=== PATIENT | female | born 1970 | race Caucasian/White ===

== ENCOUNTER 2018-11-12 19:39 | Emergency (ER) | payer OTHER ==
[~2018-11-12] VITALS: Ht 172.7 cm; Wt 71.8 kg
[2018-11-12 20:00] VITALS: BP 125/72; TEMP 98.4
[2018-11-12 22:24] LABS: BASO # 0.1 (0.0-0.2); BASO % 0.8 % (0.0-2.0); EOS # 0.1 (0.0-0.7); EOS % 1.9 % (0-4.0); GRAN # 2.6 (1.4-6.5); GRAN % 44.1 % (42.2-75.2); HEMOGLOBIN 12.4 g/dl (12.5-16.0); LYMPH # 2.5 (1.2-3.4); LYMPH % 42.3 % (20.0-51.0); MEAN CELL VOLUME 91 fl (80.0-100.0); MEAN CORPUSCULAR HEMOGLOBIN 30 pg (27.0-31.0); MEAN CORPUSCULAR HGB CONC 34 g/dl (33.0-37.0); MEAN PLATELET VOLUME 9.5 fl (7.4-10.4); MONO # 0.6 (0.1-0.6); MONO % 10.7 % (1.7-9.3); PLATELET COUNT 305 K/mm3 (130-400); RED BLOOD COUNT 4.09 M/mm3 (4.10-5.30); REDCELL DISTRIBUTION WIDTH-CV 12.4 % (11.5-14.5)
[2018-11-12 22:32] LABS: ALBUMIN 4.3 gm/dL (3.5-5.0); BILIRUBIN,TOTAL 0.2 mg/dL (0.0-1.0); CALCIUM 9.7 mg/dL (8.4-10.2); CREATININE, serum 0.93 mg/dL (0.52-1.25); TOTAL PROTEIN 7.8 gm/dL (6.4-8.2)
[2018-11-12 22:42] LABS: COLLECTION METHOD CLEAN CATCH
[2018-11-12] MEDS ORDERED: KARIVA 28 DAY1 EACH PO (22:46)
[2018-11-12] MEDS ORDERED: SYNTHROID0.05 MG/TA PO (22:46)
[2018-11-12 22:48] LABS: MUCOUS Present /lpf; PH 5 (5-8); URINE APPEARANCE Hazy; URINE BACTERIA None Seen /hpf; URINE BILIRUBIN Negative (NEGATIVE); URINE BLOOD 1+ (NEGATIVE); URINE COLOR Yellow; URINE GLUCOSE Negative (NEGATIVE); URINE KETONE Negative (NEGATIVE); URINE LEUKOCYTE ESTERASE Trace (NEGATIVE); URINE NITRATE Negative (NEGATIVE); URINE PROTEIN(semi-quant) Negative (NEGATIVE); URINE RBC 0-2 /hpf; URINE UROBILINOGEN Negative (NEGATIVE)
[2018-11-12 23:55] VITALS: PULSE 80
[2018-11-13] MEDS ORDERED: MACROBID 1100 MG/CAP PO
== END 2018-11-12 23:55 | disposition home or self-care (01) ==
LOC: COL.ER 19:39
PROVIDERS: Physician Assistant
DX: R51 Headache (principal); Z86.69 Personal history of other diseases of the nervous system and sense organs

== ENCOUNTER → 2018-12-11 | Outpatient (CLI) | payer OTHER ==
[~2018-12-11] MED LIST: KARIVA 28 DAY1 EACH PO; MACROBID 1100 MG/CAP PO; SYNTHROID0.05 MG/TA PO
== END ==
LOC: MC.RAD 14:03
DX: Z12.31 Encounter for screening mammogram for malignant neoplasm of breast (principal)

== ENCOUNTER → 2018-12-28 | Outpatient (CLI) | payer OTHER | LOC: COL.RAD 09:45 | DX: F45.8 Other somatoform disorders (principal); E05.90 Thyrotoxicosis, unspecified without thyrotoxic crisis or storm ==